=== PATIENT | male | born 1940 | race Caucasian/White ===

== ENCOUNTER 2019-01-25 16:29 | Inpatient (IN) | payer OTHER, MEDICAID, MEDICARE ==
[2019-01-25 19:44] LABS: ADD MAN DIFF? NO
[2019-01-25] MEDS: morphine 2 MG INJ IV (19:44)
[2019-01-25 19:46] LABS: BASOPHILS % 0.1 % (0.0-2.0); EOSINOPHILS % 0.1 % (0.0-7.0); HEMATOCRIT 33.3 % (42.0-52.0); HEMOGLOBIN 11.3 g/dl (14.0-18.0); LYMPHOCYTES # 3.7 10^3/ul (0.8-2.9); LYMPHOCYTES % 19.9 % (15.0-51.0); MEAN CORPUSCULAR HEMOGLOBIN 30.4 pg (29.0-33.0); MEAN CORPUSCULAR HGB CONC 33.9 g/dl (32.0-37.0); MEAN CORPUSCULAR VOLUME 89.5 fl (82.0-101.0); MEAN PLATELET VOLUME 9.4 fl (7.4-10.4); MONOCYTE # 1.2 10^3/ul (0.3-0.9); MONOCYTES % 6.2 % (0.0-11.0); NEUTROPHIL # 13.5 10^3/ul (1.6-7.5); NEUTROPHILS % 72.9 % (39.0-77.0); PLATELET COUNT 234 10^3/UL (140-415); RED BLOOD COUNT 3.72 10^6/ul (4.70-6.10); RED CELL DISTRIBUTION WIDTH 13.7 % (11.5-14.5)
[2019-01-25 19:46] LABS: WHITE BLOOD COUNT 18.5 10^3/ul (4.8-10.8)
[2019-01-25 19:49] LABS: ADD UMIC YES; UR ASCORBIC ACID NEGATIVE (NEGATIVE); UR BILIRUBIN (Dip) NEGATIVE (NEGATIVE); UR BLOOD (Dip) 2+ mg/dL (NEGATIVE); UR CLARITY CLEAR (CLEAR); UR COLOR YELLOW (YELLOW); UR GLUCOSE (Dip) NEGATIVE (NEGATIVE); UR KETONES (Dip) NEGATIVE (NEGATIVE); UR LEUKOCYTE ESTERASE (Dip) NEGATIVE Leu/ul (NEGATIVE); UR NITRITE (Dip) NEGATIVE (NEGATIVE); UR RBC 8 /HPF (0-5); UR SPECIFIC GRAVITY (Dip) 1.011 (1.003-1.030); UR TOTAL PROTEIN (Dip) 1+ mg/dl (NEGATIVE); UR UROBILINOGEN (Dip) NEGATIVE (NEGATIVE); UR WBC 1 /HPF (0-5)
[2019-01-25 20:02] LABS: ANION GAP 9 (5-13); BLOOD UREA NITROGEN 23 mg/dl (7-20); CALCIUM 8.5 mg/dl (8.4-10.2); CARBON DIOXIDE 26 mmol/L (21-31); CHLORIDE 98 mmol/L (97-110); CREATININE 1.12 mg/dl (0.61-1.24); GLUCOSE 116 mg/dl (70-220); POTASSIUM 3.8 mmol/L (3.5-5.1); SODIUM 133 mmol/L (135-144)
[2019-01-25] MEDS: SOD CHLORIDE 0.9% 500 ML IV (21:00)
[2019-01-25] MEDS: metroNIDAZOLE 500 MG/NS (PMX) 100 ML IVPB (21:01)
[2019-01-25] MEDS: CIPROFLOXACIN 400MG/D5W 200 ML IVPB (21:01)
[2019-01-25] MEDS ORDERED: ONDANSETRON 4 MG INJ IV (21:30)
[2019-01-25] MEDS ORDERED: ACETAMINOPHEN 325 MG TAB PO (21:30)
[2019-01-26] MEDS ORDERED: GLUCOSE GEL 15 GRAM TUBE BUCCAL (01:00)
[2019-01-26] MEDS ORDERED: GLUCAGON 1 MG INJ IM (01:00)
[2019-01-26] MEDS ORDERED: DEXTROSE 50% 50 ML SYRINGE IV ×2 (01:00)
[2019-01-26] MEDS ORDERED: GLUCOSE GEL 15 GRAM TUBE PO ×2 (01:00)
[2019-01-26] MEDS: ACCU-CHEK XX (02:00)
[2019-01-26] MEDS ORDERED: ALBUTEROL/IPRATROPIUM (NEB) 3 ML AMP HHN (02:30)
[2019-01-26] MEDS ORDERED: NACL 0.9% 3 ML SYG IV (02:30)
[2019-01-26] MEDS: DEXTROSE 5%-0.45% NACL 1,000 ML IV ×3 (02:37→17:47)
[2019-01-26] MEDS: morphine 2 MG INJ IV ×3 (04:02→16:21)
[2019-01-26 05:28] LABS: ADD MAN DIFF? NO
[2019-01-26 05:31] LABS: BASOPHILS % 0.2 % (0.0-2.0); EOSINOPHILS # 0.1 10^3/ul (0.0-0.5); EOSINOPHILS % 0.7 % (0.0-7.0); HEMATOCRIT 30.8 % (42.0-52.0); HEMOGLOBIN 10.1 g/dl (14.0-18.0); LYMPHOCYTES % 17.4 % (15.0-51.0); MEAN CORPUSCULAR HEMOGLOBIN 29.8 pg (29.0-33.0); MEAN CORPUSCULAR HGB CONC 32.8 g/dl (32.0-37.0); MEAN CORPUSCULAR VOLUME 90.9 fl (82.0-101.0); MEAN PLATELET VOLUME 9.5 fl (7.4-10.4); MONOCYTE # 0.8 10^3/ul (0.3-0.9); MONOCYTES % 7.1 % (0.0-11.0); NEUTROPHIL # 8.6 10^3/ul (1.6-7.5); NEUTROPHILS % 74.1 % (39.0-77.0); PLATELET COUNT 228 10^3/UL (140-415); RED BLOOD COUNT 3.39 10^6/ul (4.70-6.10); RED CELL DISTRIBUTION WIDTH 14.1 % (11.5-14.5)
[2019-01-26 05:31] LABS: WHITE BLOOD COUNT 11.6 10^3/ul (4.8-10.8)
[2019-01-26 06:11] LABS: ALANINE AMINOTRANSFERASE 19 IU/L (13-69); ALBUMIN 3.1 g/dl (3.3-4.9); ALBUMIN/GLOBULIN RATIO 0.93; ALKALINE PHOSPHATASE 68 IU/L (42-121); ANION GAP 6 (5-13); ASPARTATE AMINO TRANSFERASE 33 IU/L (15-46); BILIRUBIN,INDIRECT 0.8 mg/dl (0-1.1); BILIRUBIN,TOTAL 0.8 mg/dl (0.2-1.3); BLOOD UREA NITROGEN 20 mg/dl (7-20); CARBON DIOXIDE 27 mmol/L (21-31); CHLORIDE 102 mmol/L (97-110); CREATININE 0.96 mg/dl (0.61-1.24); GLUCOSE 135 mg/dl (70-220); POTASSIUM 3.7 mmol/L (3.5-5.1); SODIUM 135 mmol/L (135-144); TOTAL PROTEIN 6.4 g/dl (6.1-8.1)
[2019-01-26] MEDS: PIPER-TAZO 3.375 GM IV (PMX) 100 ML IVPB ×3 (06:31→17:47)
[2019-01-26] MEDS ORDERED: INSULIN ASPART [NOVOLOG] 3 ML PEN SC (07:50)
[2019-01-26] MEDS: INSULIN ASPART [NOVOLOG] 3 ML PEN SC ×4 (09:00→21:00)
[2019-01-26] MEDS: FAMOTIDINE 20 MG INJ IV (09:32)
[2019-01-26] MEDS ORDERED: hydrALAzine 20 MG INJ IV (11:00)
[2019-01-26] MEDS: ACETAMINOPHEN 325 MG TAB PO (11:16)
[2019-01-26] MEDS: BENAZEPRIL 5 MG TAB PO (13:00)
[2019-01-26] MEDS: ONDANSETRON 4 MG INJ IV (17:27)
[2019-01-26] MEDS: FAMOTIDINE 20 MG TAB PO (21:37)
[2019-01-26] MEDS: TERAZOSIN 2 MG CAP PO (21:38)
[2019-01-27] MEDS: PIPER-TAZO 3.375 GM IV (PMX) 100 ML IVPB ×5 (00:32→23:44)
[2019-01-27] MEDS: INSULIN ASPART [NOVOLOG] 3 ML PEN SC ×6 (01:00→21:00)
[2019-01-27] MEDS: ACCU-CHEK XX (01:34)
[2019-01-27] MEDS: morphine 2 MG INJ IV ×2 (05:12→20:33)
[2019-01-27 05:59] LABS: ADD MAN DIFF? NO
[2019-01-27 06:07] LABS: BASOPHILS % 0.3 % (0.0-2.0); EOSINOPHILS # 0.2 10^3/ul (0.0-0.5); HEMATOCRIT 31.9 % (42.0-52.0); HEMOGLOBIN 10.4 g/dl (14.0-18.0); LYMPHOCYTES # 2.3 10^3/ul (0.8-2.9); LYMPHOCYTES % 25.6 % (15.0-51.0); MEAN CORPUSCULAR HEMOGLOBIN 29.8 pg (29.0-33.0); MEAN CORPUSCULAR HGB CONC 32.6 g/dl (32.0-37.0); MEAN CORPUSCULAR VOLUME 91.4 fl (82.0-101.0); MEAN PLATELET VOLUME 9.4 fl (7.4-10.4); MONOCYTE # 0.6 10^3/ul (0.3-0.9); MONOCYTES % 7.3 % (0.0-11.0); NEUTROPHIL # 5.7 10^3/ul (1.6-7.5); NEUTROPHILS % 64.3 % (39.0-77.0); PLATELET COUNT 244 10^3/UL (140-415); RED BLOOD COUNT 3.49 10^6/ul (4.70-6.10); RED CELL DISTRIBUTION WIDTH 14.3 % (11.5-14.5)
[2019-01-27 06:07] LABS: WHITE BLOOD COUNT 8.8 10^3/ul (4.8-10.8)
[2019-01-27 06:20] LABS: ALANINE AMINOTRANSFERASE 22 IU/L (13-69); ALBUMIN/GLOBULIN RATIO 0.88; ALKALINE PHOSPHATASE 65 IU/L (42-121); ANION GAP 5 (5-13); ASPARTATE AMINO TRANSFERASE 24 IU/L (15-46); BILIRUBIN,INDIRECT 0.5 mg/dl (0-1.1); BILIRUBIN,TOTAL 0.5 mg/dl (0.2-1.3); BLOOD UREA NITROGEN 14 mg/dl (7-20); CALCIUM 7.4 mg/dl (8.4-10.2); CARBON DIOXIDE 27 mmol/L (21-31); CHLORIDE 104 mmol/L (97-110); CREATININE 0.96 mg/dl (0.61-1.24); GLUCOSE 125 mg/dl (70-220); MAGNESIUM 2.2 mg/dl (1.7-2.5); PHOSPHORUS 2.9 mg/dl (2.5-4.9); POTASSIUM 3.6 mmol/L (3.5-5.1); SODIUM 136 mmol/L (135-144); TOTAL PROTEIN 6.4 g/dl (6.1-8.1)
[2019-01-27] MEDS: BENAZEPRIL 5 MG TAB PO (09:00)
[2019-01-27] MEDS: DEXTROSE 5%-0.45% NACL 1,000 ML IV (16:52)
[2019-01-27] MEDS: FAMOTIDINE 20 MG TAB PO (20:33)
[2019-01-27] MEDS: TERAZOSIN 2 MG CAP PO (20:34)
[2019-01-27] MEDS: CALCIUM/VITAMIN D (500/200) TAB PO (21:00)
[2019-01-28] MEDS: INSULIN ASPART [NOVOLOG] 3 ML PEN SC ×2 (01:00→07:50)
[2019-01-28] MEDS: ACCU-CHEK XX (02:00)
[2019-01-28] MEDS: DEXTROSE 5%-0.45% NACL 1,000 ML IV (06:21)
[2019-01-28] MEDS: PIPER-TAZO 3.375 GM IV (PMX) 100 ML IVPB (06:21)
[2019-01-28] MEDS: BENAZEPRIL 5 MG TAB PO (08:14)
[2019-01-28] MEDS: CALCIUM/VITAMIN D (500/200) TAB PO (08:15)
== END 2019-01-28 12:00 | disposition home or self-care (01) | DRG 872 ==
LOC: E/R 16:29 → MS1 21:21
DX: A41.9 Sepsis, unspecified organism (principal); K57.32 Diverticulitis of large intestine without perforation or abscess without bleeding; K40.00 Bilateral inguinal hernia, with obstruction, without gangrene, not specified as recurrent; N40.0 Benign prostatic hyperplasia without lower urinary tract symptoms; E78.5 Hyperlipidemia, unspecified; I10 Essential (primary) hypertension; E11.9 Type 2 diabetes mellitus without complications; D64.9 Anemia, unspecified; E88.09 Other disorders of plasma-protein metabolism, not elsewhere classified; E83.51 Hypocalcemia; Z87.891 Personal history of nicotine dependence
CPT/HCPCS: 36415; 74176; 80048; 80053; 81001; 82962; 83735; 84100; 85025; 87040-91; 96365; 96375; 99285-25